=== PATIENT | male | born 1945 | race African-American/Black ===

== ENCOUNTER 2020-06-20 06:41 | Emergency (ER) | payer MEDICARE ==
[2020-06-20] MEDS ORDERED: SODIUM CHLORIDE 0.9% 500 ML 500 ML IV ONE (06:48)
--- NOTE | 2020-06-20 06:48 | Emergency Department Report ---
ED General Adult HPI - General Chief complaint: Weakness Stated complaint: STROKE PUI?: No Time Seen by Provider: 06/20/20 06:45 Source: patient, EMS (Verbal report received from emergency medical services. EMS documentation not available at time of chart dictation ), RN notes reviewed, old records reviewed Mode of arrival: Stretcher Limitations: Altered Mental Status, Physical Limitation - History of Present Illness Initial comments: The patient was evaluated in the emergency department for symptoms described in the history of present illness. He/she was evaluated in the context of the global COVID-19 pandemic, which necessitated consideration that the patient might be at risk for infection with the virus that causes COVID-19. Institutional protocols and algorithms that pertain to the evaluation of patients at risk for COVID-19 are in a state of rapid change based on information released by regulatory bodies including the CDC and federal and state organizations. These policies and algorithms were followed during the patient's care in the emergency department. Please note that these policies, procedures and recommendations changed on a rapid basis. The patient is a 74-year-old gentleman. He has a history of hypertension and diabetes and is on Coumadin for unclear reasons. He is brought to the hospital by emergency medical services for altered mental status and possible code stroke. Last known well time is 8:30 PM last night, as per EMS. They report normal Accu-Chek and appropriate blood pressure in the field. Stroke symptoms include altered mental status, right-sided drift/weakness, and a aphasia. The patient is awake and follows commands. Patient not able to describe the qualitative nature of his symptoms. the patient indicates he is not having physical pain. The patient denies junior temesis or bright red blood per rectum. At the moment, the patient is not accompanied by friends or family for additional information/collateral information. -: hour(s) Quality: other Consistency: other Improves with: other Worsens with: other Associated Symptoms: other - Related Data Home Medications Medication Instructions Recorded Confirmed Last Taken AtorvaSTATin [Lipitor] 20 mg PO QHS 09/05/18 06/20/20 09/08/18 Cholecalciferol Vit D3 [Vitamin D3] 1,000 unit PO QDAY 09/05/18 06/20/20 09/08/18 Cyanocobalamin [Vitamin B-12] 1,000 mcg IM QMONTH 09/05/18 06/20/20 Unknown Lisinopril [Zestril TAB] 2.5 mg PO QDAY 09/05/18 06/20/20 09/09/18 Metoprolol [Lopressor TAB] 25 mg PO DAILY 09/05/18 06/20/20 09/09/18 Allergies Allergy/AdvReac Type Severity Reaction Status Date / Time No Known Allergies Allergy Verified 09/05/18 11:57 ED Review of Systems ROS: Stated complaint: STROKE Other details as noted in HPI Comment: Unobtainable due to pts medical conditions ED Past Medical Hx - Past Medical History Hx Hypertension: No (takes lisinopril for renal protection) 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) Hx Diabetes: Yes (2009- [facility]) Hx Liver Disease: No Hx Renal Disease: No Hx Seizures: No Hx Asthma: Yes Hx COPD: Yes (ALBUTERAL NEBS TID) Hx HIV: No - Surgical History Hx Coronary Stent: No Hx Open Heart Surgery: Yes ([facility] 04/2018) - Social History Smoking Status: Former Smoker - Medications Home Medications: Home Medications Medication Instructions Recorded Confirmed Last Taken Type AtorvaSTATin [Lipitor] 20 mg PO QHS 09/05/18 06/20/20 09/08/18 History Cholecalciferol Vit D3 [Vitamin D3] 1,000 unit PO QDAY 09/05/18 06/20/20 09/08/18 History Cyanocobalamin [Vitamin B-12] 1,000 mcg IM QMONTH 09/05/18 06/20/20 Unknown History Lisinopril [Zestril TAB] 2.5 mg PO QDAY 09/05/18 06/20/20 09/09/18 History Metoprolol [Lopressor TAB] 25 mg PO DAILY 09/05/18 06/20/20 09/09/18 History ED Physical Exam - General Limitations: Altered Mental Status, Physical Limitation General appearance: in no apparent distress - Head Head exam: Present: atraumatic, normocephalic - Eye Eye exam: Present: normal appearance, PERRL, EOMI, conjunctival injection - ENT ENT exam: Present: normal exam, normal orophraynx, mucous membranes moist, normal external ear exam - Neck Neck exam: Present: normal inspection, full ROM. Absent: tenderness, meningismus - Respiratory Respiratory exam: Present: normal lung sounds bilaterally. Absent: respiratory distress, wheezes, rales, rhonchi, stridor - Cardiovascular Cardiovascular Exam: Present: regular rate, normal rhythm, normal heart sounds. Absent: bradycardia, tachycardia, irregular rhythm, systolic murmur, diastolic murmur, rubs, gallop - GI/Abdominal GI/Abdominal exam: Present: soft. Absent: distended, tenderness, guarding, rebound, rigid, pulsatile mass - Rectal Rectal exam: Present: deferred - Extremities Exam Extremities exam: Present: normal inspection, full ROM, other (2+ pulses noted in the bilateral upper and lower extremities. There is no palpable cord. negative Homans sign. Muscular compartments are soft. The pelvis is stable.). Absent: pedal edema, calf tenderness - Back Exam Back exam: Present: normal inspection, full ROM. Absent: tenderness, CVA tenderness (R), CVA tenderness (L), paraspinal tenderness, vertebral tenderness - Neurological Exam Neurological exam: Present: altered, motor sensory deficit, other (The patient is awake. The patient follows commands. The extraocular movements are intact. There is no facial droop. There is 5 out of 5 strength in the left upper, left lower extremity. There is 4 out of 5 strength in the right upper, right lower extremity. There is decrease sensation to light touch in the right upper, right lower extremity.) - Skin Skin exam: Present: warm, dry, intact, normal color. Absent: rash ED Course Vital Signs 06/20/20 06/20/20 06/20/20 07:36 07:45 08:00 Pulse Rate 88 90 92 H Respiratory 21 21 19 Rate Blood Pressure 133/83 141/71 O2 Sat by Pulse 98 97 97 Oximetry 06/20/20 06/20/20 06/20/20 08:15 08:30 08:45 Pulse Rate 89 93 H 85 Respiratory 22 18 19 Rate Blood Pressure 142/78 133/82 120/64 O2 Sat by Pulse 97 96 97 Oximetry 06/20/20 06/20/20 06/20/20 09:00 09:15 09:30 Pulse Rate 92 H 87 88 Respiratory 14 24 17 Rate Blood Pressure 121/65 121/65 130/69 O2 Sat by Pulse 97 97 97 Oximetry 06/20/20 06/20/20 06/20/20 09:45 10:00 10:15 Pulse Rate 88 89 87 Respiratory 13 18 18 Rate Blood Pressure 122/76 119/75 121/76 O2 Sat by Pulse 98 98 97 Oximetry 06/20/20 06/20/20 06/20/20 10:30 10:45 11:01 Pulse Rate 77 91 H 94 H Respiratory 20 18 18 Rate Blood Pressure 115/70 121/76 122/65 O2 Sat by Pulse 97 97 97 Oximetry 06/20/20 11:15 Pulse Rate 95 H Respiratory 26 H Rate Blood Pressure 123/71 O2 Sat by Pulse 97 Oximetry - Reevaluation(s) Reevaluation #1: 06/20/20 07:19 Differential diagnosis, including but not limited to: Stroke, pneumonia, urinary tract infection, electrolyte derangement Assessment and plan: 74-year-old gentleman, with concerning strokelike symptoms, on therapeutic anticoagulation, INR pending at this time, not a TPA candidate as CT scan of the brain shows multiple hemorrhagic lesions. Therefore, emergency CT angiogram is not indicated to evaluate for large vessel occlusion. His CT scan was evaluated by our consulting neurosurgeon, Dr. Jason Giordano, who advised that given presence of presumed intracranial lesions, metastatic versus primary, transfer to a tertiary care center was indicated, as the patient's medical and potential surgical needs exceeds the capability of this facility We are waiting for the patient's labs to result, and depending on his INR, we will likely reversed with vitamin K, plus minus prothrombin complex concentrate. I did discuss this with the patient, I am unsure of his understanding of the situation. He has a GCS of 13-14, secondary to confusion, NIH score of 15, protecting his airway, blood pressure 153/81, heart rate 96 bpm, saturating 97% on room air, respirations 21/min, temperature 98.1 F. 06/20/20 07:28 Reevaluation #2: 06/20/20 07:50 Laboratory studies reviewed and appreciated. Vitamin K, Keppra ordered. 4 factor prothrombin complex concentrate/ kcentra is ordered by myself. Secondary to technical reasons with our medical record/ordering system, I had to call the pharmacy, and verbally requests this medication emergently. Given INR of 3.6, recommended dose 25 units/kg, therefore, dose should be 1550 units total. Reevaluation #3: 06/20/20 07:54 eugenio on saturation, cannot accept paged out to [facility] 06/20/20 08:22 [facility] cannot accept discussed with patients daughter, Ashli Sarmiento; [phone] She is updated on patient's condition and plan of care. She has given consent for transfer. 06/20/20 08:[address] Marie, neurology critical care at [facility] Patient is accepted as a transfer. Patient started pending arrival, I will discuss with her when she arrives Reevaluation #4: 06/20/20 10:16 Patient resting comfortably, no acute distress, protecting airway. X-ray of the chest reviewed and appreciated. Clinically favor mass overt pneumonia. Still awaiting transportation at this time. ED Medical Decision Making - Lab Data Result diagrams: 06/20/20 07:17 06/20/20 07:17 Labs 06/20/20 06/20/20 06/20/20 07:17 07:17 07:17 WBC 6.6 RBC 5.78 H Hgb 17.2 H Hct 52.8 H MCV 91 MCH 30 MCHC 33 RDW 15.8 H Plt Count 180 Lymph % (Auto) 5.3 L [place] % (Auto) 8.1 H Eos % (Auto) 1.6 Baso % (Auto) 0.6 Lymph # 0.4 L [place] # 0.5 Eos # 0.1 Baso # 0.0 Seg Neutrophils % 84.4 H Seg Neutrophils # 5.6 PT 37.1 H INR 3.68 H APTT 46.8 H Sodium 139 Potassium 4.6 Chloride 104.9 Carbon Dioxide 17 L Anion Gap 22 BUN 20 Creatinine 0.8 Estimated GFR > 60 BUN/Creatinine Ratio 25 Glucose 143 H POC Glucose Calcium 10.1 Magnesium 2.30 Total Creatine Kinase 255 H Troponin T < 0.010 06/20/20 07:24 WBC RBC Hgb Hct MCV MCH MCHC RDW Plt Count Lymph % (Auto) [place] % (Auto) Eos % (Auto) Baso % (Auto) Lymph # [place] # Eos # Baso # Seg Neutrophils % Seg Neutrophils # PT INR APTT Sodium Potassium Chloride Carbon Dioxide Anion Gap BUN Creatinine Estimated GFR BUN/Creatinine Ratio Glucose POC Glucose 163 H Calcium Magnesium Total Creatine Kinase Troponin T - Radiology Data Radiology results: report reviewed, image reviewed Print Report Referring Physician: MARIO LANE Patient Name: MURIEL SARMIENTO Date of : 1945 Sex: Male Report Date: 2020-06-20 Report Status: Finalized Findings [facility] [address] [place] [address] Cat Scan Report Signed Patient: MURIEL SARMIENTO MR#: [id number] : 1945 Acct:[id number] Age/Sex: 74 / M ADM Date: 06/20/20 Loc: ED Attending Dr: Order ing Physician: MARIO LANE MD Date of Service: 06/20/20 Procedure(s): CT head/brain wo con Accession Number(s): [id number] cc: MARIO LANE MD CT head/brain wo con INDICATION: Code Stroke Protocol - Stroke-Like symptoms. TECHNIQUE: All CT scans at this location are performed using the following dose modulation technique: Automated exposure control. CONTRAST: None. COMPARISON: None available. FINDINGS: For hemorrhagic lesions are present. 2 at the right parietal region, one at the level left parietal region and a larger lesion with central necrosis at the left frontal region. All have adjacent vasogenic edema. There is mass effect from the right frontal lesion with compression greatest at the frontal horn and body of the left lateral ventricle. Midline shift is approximately 7 mm. No stroke or subdural hematoma. No ventricular dilatation. The imaged bones and paranasal sinuses are unremarkable. IMPRESSION: 1. Multiple hemorrhagic lesions with vasogenic edema. There is mass effect and midline shift at the left frontal region. Metastatic disease is favored. Alternatively, the le ft frontal lesion could be a brain primary. 2. No CT evidence of stroke. CODE STROKE: Time of Communication (TUFTING MACHINE FIXER/CDT): 6:15 AM Central standard time Licensed Practitioner Receiving Report: Dr. Lane Signer Name: Dave Echavarria MD Signed: 06/20/2020 7:20 AM Workstation Name: [id number] Transcribed By: ES Dictated By: Dave Echavarria MD Electronically Authenticated By: Dave Echavarria MD Signed Date/Time: 06/20/20719 DD/ 0 TD/TT: Print Report Referring Physician: MARIO LANE Patient Name: MURIEL SARMIENTO Date of : 1945 Sex: Male Report Date: 2020-06-20 Report Status: Finalized Findings [facility] [address] [place] [address] XRay Report Signed Patient: MURIEL SARMIENTO MR#: [id number] : 1945 Acct:[id number] Age/Sex: 74 / M ADM Date: 06/20/20 Loc: ED Attending Dr: Ordering Physician: MARIO LANE MD Date of Service: 06/20/20 Procedure(s): XR chest 1V ap Accession Number(s): [id number] cc: MARIO LANE MD Fluoro Time In Minutes: CHEST 1 VIEW INDICATION / CLINICAL INFORMATION: cva weak. COMPARISON: None available. FINDINGS: SUPPORT DEVICES: Port-A-Cath is noted with the tip at the level of the superior vena cava HEART / MEDIASTINUM: Changes of prior median sternotomy are noted LUNGS / PLEURA: There is abnormal soft tissue density in the right infrahilar location which could represent airspace consolidation. Possibility that this represents a perihilar mass is considered. No pneumothorax. ADDITIONAL FINDINGS: No significant additional findings. IMPRESSION: There is parenchymal density in the right infrahilar location which could represent airspace consolidation or mass. Signer Name: Onur Oakley MD Signed: 06/20/2020 8:01 AM Workstation Name: [id number] Transcribed By: SS Dictated By: Onur Oakley MD Electronically Authenticated By: Onur Oakley MD Signed Date/Time: 06/20/20 08 DD/ 075 Critical Care Time: Yes Critical care time in (mins) excluding proc time.: 120 Critical care attestation.: If time is entered above; I have spent that time in minutes in the direct care of this critically ill patient, excluding procedure time. ED Disposition Clinical Impression: Hemorrhagic stroke, Intracranial space-occupying lesion, Supratherapeutic INR Disposition: DC/TX-02 SHRT-TRM GEN HOSP IP Is pt being admited?: No Does the pt Need Aspirin: No Condition: Critical Referrals: PRIMARY CARE, [Referring] - 3-5 Days
--- NOTE | 2020-06-20 07:08 | Consultation ---
History of Present Illness - Reason for Consult Consult date: 06/20/20 Requesting physician: MARIO WELLINGTON - History of Present Illness [facility] Tele[facility]rology Consult Services Date of Service: 06/20/2020 06:29:44 Impression: Rule Out Acute Ischemic Stroke R cortical ICH vs hemorrhagic metastasis with possible worsening of old stroke findings Comments/Sign-Out: 74yo M w pmh of htn, dm, strokes in the past, cancer who was last normal at 20:30 last night and woke up at 5am with confusion and noted to have R arm drift by EMS. Outside of window for tpa and on coumadin. R ICH noted (hemorrhagic metastasis?), large cystic area L frontal region - encephalomalacia? Not tpa or berry candidate. Mechanism of Stroke: Possible Thromboembolic Possible Cardioembolic Small Vessel Disease Watershed Infarct Not Clear Metrics: Last Known Well: 06/19/2020 20:30:00 [facility] Notification Time: 06/20/2020 06:29:06 Arrival Time: 06/20/2020 06:41:00 Stamp Time: 06/20/2020 06:29:44 Time First Login Attempt: 06/20/2020 06:33:09 Video Start Time: 06/20/2020 06:33:09 Symptoms: R arm drift and ams NIHSS Start Assessment Time: 06/20/2020 06:42:00 Patient is not a candidate for Alteplase/Activase. Patient was not deemed candidate for Alteplase/Activase thrombolytics because of acute ich, AC, >4.5hr. Video End Time: 06/20/2020 07:02:59 CT head was reviewed and results were: independently reviewed - R posterior cortical hemorrhage (metastic appearing lesion, large area of cystic encephalomalacia in L frontal Clinical Presentation is not Suggestive of Large Vessel Occlusive Disease CTA Head and Neck. ED Physician notified of diagnostic impression and management plan on 06/20/2020 07:06:00 Our recommendations are outlined below. Recommendations: Activate Stroke Protocol Admission/Order Set Stroke/Telemetry Floor Neuro Checks Bedside Swallow Eval DVT Prophylaxis IV Fluids, Normal Saline Head of Bed 30 Degrees Euglycemia and Avoid Hyperthermia (PRN Acetaminophen) hold antithrombotics and check inr and reserve coumadin if elevated w vitamin K strict bp control < sbp 140-160 mri brain w/w/o contrast when stable if no contraindications Routine Consultation with Inhouse Neurology for Follow up Care Sign Out: Discussed with Emergency Department Provider History of Present Illness: Patient is a 74 year old Male. Patient was brought by EMS for symptoms of R arm drift and ams 74yo M w pmh of htn, cad s/p cabg, copd, hld, mi, dm, strokes in the past, cancer who was last normal at 20:30 last night by family. He was found at 5am on the floor of the shower confused. He is ambulatory at baseline. He was noted to have R arm drift by EMS. Last seen normal was beyond 4.5 hours of presentation. There is history of hemorrhagic complications or intracranial hemorrhage. There is history of Recent Anticoagulants. Past Medical History: Hypertension Diabetes Mellitus Hyperlipidemia Stroke Anticoagulant use: coumadin Examination: BP(144/76 by ems), 1A: Level of Consciousness - Arouses to minor stimulation + 1 1B: Ask Month and Age - Aphasic + 2 1C: Blink Eyes & Squeeze Hands - Performs Both Tasks + 0 2: Test Horizontal Extraocular Movements - Normal + 0 3: Test Visual العراقي - No Visual Loss + 0 4: Test Facial Palsy (Use Grimace if Obtunded) - Minor paralysis (flat nasolabial fold, smile asymmetry) + 1 5A: Test Left Arm Motor Drift - No Drift for 10 Seconds + 0 5B: Test Right Arm Motor Drift - Some Effort Against Black + 2 6A: Test Left Leg Motor Drift - No Drift for 5 Seconds + 0 6B: Test Right Leg Motor Drift - No Effort Against Black + 3 7: Test Limb Ataxia (FNF/Heel-Patel) - No Ataxia + 0 8: Test Sensation - Mild-Moderate Loss: Less Sharp/More Dull + 1 9: Test Language/Aphasia - Mute/Global Aphasia: No Usable Speech/Auditory Comprehension + 3 10: Test Dysarthria - Mute/Anarthric + 2 11: Test Extinction/Inattention - No abnormality + 0 NIHSS Score: 15 Patient/Family was informed the Neurology Consult would happen via TeleHealth consult by way of interactive audio and video telecommunications and consented to receiving care in this manner. Due to the immediate potential for life-threatening deterioration due to underlying acute neurologic illness, I spent 35 minutes providing critical care. This time includes time for face to face visit via telemedicine, review of medical records, imaging studies and discussion of findings with providers, the patient and/or family. Dr Analilia Sinclair [facility] Case [id number] Medications and Allergies Allergies Allergy/AdvReac Type Severity Reaction Status Date / Time No Known Allergies Allergy Verified 09/05/18 11:57 Home Medications Medication Instructions Recorded Confirmed Last Taken Type Aspirin [Aspirin BABY CHEW TAB] 81 mg PO QDAY 09/05/18 09/05/18 Unknown History AtorvaSTATin [Lipitor] 20 mg PO QHS 09/05/18 09/09/18 09/08/18 History Cholecalciferol Vit D3 [Vitamin D3] 1,000 unit PO QDAY 09/05/18 09/09/18 1 11/09/17 History Cyanocobalamin [Vitamin B-12] 1,000 mcg IM QMONTH 09/05/18 09/05/18 Unknown History Glimepiride [Amaryl] 2 mg PO BID PRN 09/05/18 09/09/18 09/08/18 History Lisinopril [Zestril TAB] 2.5 mg PO QDAY 09/05/18 09/09/18 09/09/18 History Metoprolol [Lopressor TAB] 25 mg PO DAILY 09/05/18 09/09/18 09/09/18 History Saxagliptin HCl/Metformin HCl 1 tab PO DAILY 09/05/18 09/09/18 09/08/18 History [Kombiglyze XR 5-1,000 mg] Warfarin Sodium 0 mg PO DAILY 09/05/18 09/05/18 09/03/18 History HYDROcodone/APAP 5-325 [Dwight 1 - 2 each PO Q4HR PRN #30 tablet 09/09/18 Unknown Rx 5/325] Active Meds: Active Medications Sodium Chloride (Nacl 0.9% 500 Ml) 500 mls @ 999 mls/hr IV ONCE ONE Stop: 06/20/20 07:18
--- NOTE | 2020-06-20 07:24 | Cat Scan Report ---
CT head/brain wo con INDICATION: Code Stroke Protocol - Stroke-Like symptoms. TECHNIQUE: All CT scans at this location are performed using the following dose modulation technique: Automated exposure control. CONTRAST: None. COMPARISON: None available. FINDINGS: For hemorrhagic lesions are present. 2 at the right parietal region, one at the level left parietal region and a larger lesion with central necrosis at the left frontal region. All have adjace nt vasogenic edema. There is mass effect from the right frontal lesion with compression greatest at t he frontal horn and body of the left lateral ventricle. Midline shift is approximately 7 mm. No stroke or subdural hematoma. No ventricular dilatation. The imaged bones and paranasal sinuses are unremarkable. IMPRESSION: 1. Multiple hemorrhagic lesions with vasogenic edema. There is mass effect and midline shift at the l eft frontal region. Metastatic disease is favored. Alternatively, the left frontal lesion could be a brain primary. 2. No CT evidence of stroke. CODE STROKE: Time of Communication (SALES ANALYST/CDT): 6:15 AM Central standard time Licensed Practitioner Receiving Report: Dr. Lane Signer Name: Dave Echavarria MD Signed: 06/20/2020 7:20 AM Workstation Name: [id number]
[2020-06-20 07:33] LABS: INR 3.68 (0.87-1.13)
[2020-06-20 07:39] LABS: BUN/Creatinine Ratio 25; Blood Urea Nitrogen 20 mg/dL (9-20); Calcium 10.1 mg/dL (8.4-10.2); Hemolysis Index 52; Partial Thromboplastin Time 46.8 Sec. (24.2-36.6)
[2020-06-20 07:40] LABS: Hematocrit 52.8 % (35.5-45.6); Hemoglobin 17.2 gm/dl (11.8-15.2); Lymphocytes % (Auto) 5.3 % (13.4-35.0); Mean Corpuscular HGB Conc 33 % (32-34); Mean Corpuscular Volume 91 fl (84-94); Platelet Count 180 K/mm3 (140-440); Red Blood Count 5.78 M/mm3 (3.65-5.03); Red Cell Distribution Width 15.8 % (13.2-15.2)
[2020-06-20 07:41] LABS: Basophils % (Auto) 0.6 % (0.0-1.8); Eosinophils # (Auto) 0.1 K/mm3 (0.0-0.4); Eosinophils % (Auto) 1.6 % (0.0-4.3); Lymphocytes # (Auto) 0.4 K/mm3 (1.2-5.4); Monocytes # (Auto) 0.5 K/mm3 (0.0-0.8); Monocytes % (Auto) 8.1 % (0.0-7.3)
[2020-06-20] MEDS ORDERED: levETIRAcetam 1000 MG/NS 0.75% 1,000 MG/100 ML BAG IV ONE (07:47)
--- NOTE | 2020-06-20 08:05 | XRay Report ---
CHEST 1 VIEW INDICATION / CLINICAL INFORMATION: cva weak. COMPARISON: None available. FINDINGS: SUPPORT DEVICES: Port-A-Cath is noted with the tip at the level of the superior vena cava HEART / MEDIASTINUM: Changes of prior median sternotomy are noted LUNGS / PLEURA: There is abnormal soft tissue density in the right infrahilar location which could re present airspace consolidation. Possibility that this represents a perihilar mass is considered. No p neumothorax. ADDITIONAL FINDINGS: No significant additional findings. IMPRESSION: There is parenchymal density in the right infrahilar location which could represent airspace consolid ation or mass. Signer Name: Onur Oakley MD Signed: 06/20/2020 8:01 AM Workstation Name: [id number]
[2020-06-20] MEDS ORDERED: PROTHROMBIN COMPLEX HUMAN IV ONE ×2 (08:30→10:00)
[2020-06-20] MEDS ORDERED: PHYTONADIONE(ADULT ONLY) 10 MG in SODIUM CHLORIDE 0.9% 50 ML IV ONE (08:30)
[2020-06-20 12:48] VITALS: BP 123/71
== END 2020-06-20 11:30 | disposition short-term general hospital (02) ==
LOC: ED 06:41
DX: I62.9 Nontraumatic intracranial hemorrhage, unspecified (principal); R90.0 Intracranial space-occupying lesion found on diagnostic imaging of central nervous system; R79.1 Abnormal coagulation profile; I25.2 Old myocardial infarction; E11.9 Type 2 diabetes mellitus without complications; J44.9 Chronic obstructive pulmonary disease, unspecified; Z98.890 Other specified postprocedural states; Z87.891 Personal history of nicotine dependence; Z79.899 Other long term (current) drug therapy
CPT/HCPCS: 36415; 70450; 71045; 80048; 82550; 82962; 83735; 84443; 84484; 85025; 85610; 85730; 96365; 96367; 99291; 99292; J1953; J3430; J7195; 80320; G0480; J7040